=== PATIENT | female | born 1980 | race Hispanic/Latino ===

== ENCOUNTER 2020-08-23 00:10 | Emergency (ER) | payer OTHER ==
[2020-08-23] MEDS ORDERED: DEXAMETHASONE 4 MG TAB ONE (01:15)
[2020-08-23] MEDS ORDERED: AMOXICILLIN/POTASSIUM CLAV 875-125 TABLET PO ONE (01:15)
== END 2020-08-23 01:19 | disposition home or self-care (01) ==
LOC: EDH 00:10
DX: J03.90 Acute tonsillitis, unspecified (principal)
CPT/HCPCS: 99283; J8540